=== PATIENT | male | born 1940 | race Caucasian/White ===

== ENCOUNTER → 2018-11-12 | Outpatient (CLI) | payer MEDICARE, BC ==
[~2018-11-12] MED LIST: ASPIRIN 32325 MG/TAB PO; CELEBREX 1100 MG/CAP PO; CELEBREX PO; CENTRUM SILVER1 TA1 PO; CLARITIN D TAB1 TAB PO; COMPLETE SENIOR1 TA1 PO; FERROUS SU325 MG/TAB PO; FOLIC ACID PO; MOBIC15 MG PO; NEXIUM 20MG20 MG PO; PEPCID 20MG TAB20 MG PO; TYLENOL 500MG500 MG PO; VITAMIN C500 MG PO
== END ==
LOC: ZCOL.LAB 16:51
DX: Z01.812 Encounter for preprocedural laboratory examination (principal); Z86.14 Personal history of Methicillin resistant Staphylococcus aureus infection

== ENCOUNTER 2019-01-02 09:01 | Day surgery (SDC) | payer MEDICARE, BC ==
[~2019-01-02] VITALS: Ht 167.6 cm; Wt 91.5 kg
[2019-01-02 09:41] VITALS: BP 153/79; PULSE 72; TEMP 97.4
[2019-01-02] MEDS ORDERED: TYLENOL 325MG325 MG PO (09:48)
[2019-01-02] MEDS ORDERED: CELEBREX 200MG200 MG PO (09:48)
--- NOTE | 2019-01-02 09:51 | NUR ---
TO SARAH AT 0909- CALL LIGHT IN REACH
[2019-01-02 12:55] VITALS: BP 155/80; PULSE 66; TEMP 98
--- NOTE | 2019-01-02 12:55 | NUR ---
TO 5 PER CART FROM PACU. UPON RETURNING TO PATIENT ASKING TO GO HOME. UP AMBULATED TO BATHROOM. VOIDED AND TOLERATED WELL. DENIES PAIN OR DISCOMFORT DENIES NAUSEA OR VOMITING.
[2019-01-02 13:10] VITALS: BP 144/87; PULSE 82
--- NOTE | 2019-01-02 13:10 | NUR ---
RECEIVED MUFFIN AND JUICE.
[2019-01-02 13:25] VITALS: BP 153/81; PULSE 71
--- NOTE | 2019-01-02 13:25 | NUR ---
ATE 100% AND TOLERATED WELL.
--- NOTE | 2019-01-02 13:33 | NUR ---
RECEIVED DISCHARGE INSTRUCTIONS AND VERBALIZED UNDERSTANDING. DISCONTINUED IV AND INT- CATHETER INTACT
--- NOTE | 2019-01-02 13:45 | NUR ---
DISCHARGED PER WC BY NURSING STAFF TO PRIVATE CAR IN CARE OF - FELIBERTO.
[2019-01-02 14:34] VITALS: BP 155/80; PULSE 66
== END 2019-01-02 13:46 | disposition home or self-care (01) ==
LOC: SDCO 09:01
DX: N20.1 Calculus of ureter (principal); Z96.651 Presence of right artificial knee joint; Z79.899 Other long term (current) drug therapy
CPT/HCPCS: C1769; J0690; J2405; J2704; J3010; J7120; Q9967